=== PATIENT | male | born 1955 | race African-American/Black ===

== ENCOUNTER 2017-12-08 12:33 | Emergency (ER) | payer MEDICARE, MEDICAID ==
[~2017-12-08] VITALS: Ht 180.3 cm; Wt 120.0 kg
[~2017-12-08 12:33] MED LIST: DOCU-138 PO; HYDR-3280 PO; HYDR-4009 PO; HYDR25TA PO; OMEP20TA2 PO; OR220 PO
[2017-12-08] MEDS ORDERED: LIDOCAINE HCL/PF 1% 10 MG/ML 5ML VIAL ONE (13:09)
[2017-12-08] MEDS ORDERED: SODIUM BICARBONATE 4% (2.4MEQ) 5ML VIAL IV ONE (13:09)
[2017-12-08 14:48] VITALS: BP 128/72
== END 2017-12-08 19:19 | disposition home or self-care (01) ==
LOC: ER 12:33
DX: Z44.8 Encounter for fitting and adjustment of other external prosthetic devices (principal); I10 Essential (primary) hypertension; N28.9 Disorder of kidney and ureter, unspecified; Z88.0 Allergy status to penicillin
CPT/HCPCS: 36569; 77001; 99285; C1725; J3490